=== PATIENT | female | born 1965 | race Caucasian/White ===

== ENCOUNTER 2021-11-07 09:19 | Outpatient (CLI) | payer BC, SELFPAY | END 2021-11-07 09:20 | disposition home or self-care (01) | LOC: RAD 09:22 | PROVIDERS: Visit Provider Family Medicine | DX: M54.16 Radiculopathy, lumbar region (principal); M51.36 Other intervertebral disc degeneration, lumbar region | CPT/HCPCS: 62323; J0702; Q9966 ==